=== PATIENT | male | born 2000 | race African-American/Black ===

== ENCOUNTER 2021-10-21 20:44 | Emergency (ER) | payer OTHER ==
[~2021-10-21 20:44] MED LIST: Iopamidol-370 76% 500 ML 1 ML ONE
[2021-10-21 21:28] LABS: #Eosinphils 0.4 thou/uL (0.0-0.7); #Lymphocytes 2.6 thou/uL (1.20-3.40); #Monocytes 0.7 thou/uL (0.11-0.59); #Neutrophils 4.2 thou/uL (1.40-6.50); %Basophils 0.5 % (0.0-1.0); %Eosinophils 5.3 % (0.0-10.0); %Lymphocytes 33.3 % (28.0-48.0); %Monocytes 8.3 % (0.0-4.0); %Neutrophils 52.6 % (31.0-61.0); Hemoglobin 15.2 g/dL (14.0-18.0); Mean Corpuscular Hemoglobin 30.8 pg (25.0-35.0); Mean Corpuscular Volume 93.3 fL (78.0-98.0); Mean Platelet Volume 8.1 fL (7.4-10.4); Platelet Count 218 thou/uL (130-400); Red Blood Cell (RBC) Count 4.92 mill/uL (4.00-5.20); White Blood Cell (WBC) Count 7.9 thou/uL (4.8-10.8)
[2021-10-21] MEDS ORDERED: Morphine 4 MG/ML VIAL ONE (21:53)
[2021-10-21 22:55] LABS: Anion Gap 14 mmol/L (10-20); BUN (Urea Nitrogen) 18 mg/dL (8.9-20.6); Calc. Creatinine Clearance 0 mL/min (70-130); Calcium 9.6 mg/dL (7.8-10.44); Carbon Dioxide 24 mmol/L (22-29); Chloride 102 mmol/L (98-107); Glucose 116 mg/dL (70-105); Potassium 3.8 mmol/L (3.5-5.1); Sodium 136 mmol/L (136-145)
[2021-10-21 22:56] LABS: ALT (SGPT) 25 U/L (8-55); AST (SGOT) 22 U/L (5-34); Albumin 4.6 g/dL (3.5-5.0); Alkaline Phosphatase 89 U/L (50-130); Bilirubin, Direct 0.1 mg/dL (0.1-0.3); Bilirubin, Total 0.2 mg/dL (0.2-1.2); Protein, Total 7.9 g/dL (6.0-8.3)
== END 2021-10-21 23:15 | disposition home or self-care (01) ==
LOC: ERS 20:44
DX: K46.9 Unspecified abdominal hernia without obstruction or gangrene (principal)
CPT/HCPCS: 36415; 74177; 80048; 80076; 83605; 85025; 96374; J2270

== ENCOUNTER 2021-10-25 15:47 | Outpatient (CLI) | payer OTHER ==
[2021-10-25 18:21] LABS: #Basophils 0.1 10x3/uL (0.0-0.2); #Eosinphils 0.4 10x3/uL (0.0-0.5); #Monocytes 0.6 10x3/uL (0.0-1.1); #Neutrophils 3.3 10x3/uL (1.5-8.4); %Eosinophils 6.5 % (0.0-6.0); %Lymphocytes 25.9 % (18.0-47.0); %Monocytes 10.5 % (0.0-10.0); %Neutrophils 55.8 % (40.0-75.0); Hemoglobin 15.4 g/dL (13.5-17.5); Mean Corpuscular Hemoglobin 30.1 pg (27.0-33.0); Mean Corpuscular Volume 88.6 fl (81.2-95.1); Mean Platelet Volume 11.2 fl (7.4-10.4); Platelet Count 253 10x3/uL (150-450); RBC Distribution Width 11.8 % (11.5-14.5); Red Blood Cell (RBC) Count 5.11 10x6/uL (4.32-5.72)
[2021-10-25 18:35] LABS: Anion Gap 14 mmol/L (10-20); BUN (Urea Nitrogen) 16 mg/dL (8.9-20.6); Calc. Creatinine Clearance 0 mL/min (70-130); Calcium 9.8 mg/dL (7.8-10.44); Carbon Dioxide 28 mmol/L (22-29); Chloride 100 mmol/L (98-107); Glucose 80 mg/dL (70-105); Potassium 4.3 mmol/L (3.5-5.1); Sodium 138 mmol/L (136-145)
[2021-10-26 00:50] LABS: SARS-CoV-2 PCR by NAA Not Detected (NotDetected)
== END 2021-10-25 15:48 | disposition home or self-care (01) ==
LOC: LABBT 15:47
PROVIDERS: ATTEND Surgery
DX: Z01.812 Encounter for preprocedural laboratory examination (principal); Z20.822 Contact with and (suspected) exposure to COVID-19
CPT/HCPCS: 80048; 85025; U0003; U0005

== ENCOUNTER 2021-10-28 11:34 | Day surgery (SDC) | payer OTHER ==
[2021-10-25 14:39] VITALS: BMI 27.2
[2021-10-28] MEDS ORDERED: Lidocaine 1% MPF 2 ML VIAL ONE (12:20)
[2021-10-28] MEDS ORDERED: Lidocaine 1% w/Epinephrine 1:100K 20 ML VIAL ONE ×2 (12:59→14:06)
[2021-10-28] MEDS ORDERED: Bupivacaine 0.25% 10 ML VIAL ONE ×2 (12:59→14:06)
[2021-10-28] MEDS ORDERED: Midazolam HCl 2 mg/2 ml Vial ONE (13:20)
[2021-10-28] MEDS ORDERED: Dexmedetomidine 200 MCG/2 ML VIAL ONE (14:03)
[2021-10-28] MEDS ORDERED: fentaNYL Citrate/PF 100 MCG/2 ML SYRINGE ONE (14:03)
[2021-10-28] MEDS ORDERED: Meperidine HCl/PF 25 MG/ML VIAL ONE (14:07)
[2021-10-28] MEDS ORDERED: Famotidine/PF 20 mg/2ml Vial ONE (14:07)
[2021-10-28] MEDS ORDERED: ceFAZolin (BATCH) 2 GM/100 ML BAG ONE (14:15)
[2021-10-28] MEDS ORDERED: Ketorolac Tromethamine 30 MG/ML VIAL ONE (14:22)
[2021-10-28] MEDS ORDERED: Dexamethasone 20 MG/5 ML VIAL ONE (14:22)
[2021-10-28] MEDS ORDERED: Ondansetron PF 4 MG/2 ML Vial ONE (14:22)
[2021-10-28] MEDS ORDERED: PROPOFOL 200 MG/20 ML VIAL ONE (14:22)
[2021-10-28] MEDS ORDERED: Metoclopramide HCl 10 MG/2 ML VIAL ONE (14:22)
[2021-10-28] MEDS ORDERED: Lidocaine 1% PF 5 ML VIAL ONE (14:22)
[2021-10-28] MEDS ORDERED: HYDROcodone/Acetaminophen 5/325 mg Tablet ONE (15:57)
== END 2021-10-28 17:05 | disposition home or self-care (01) ==
LOC: SDC 11:34
PROVIDERS: ATTEND Surgery
PROC: 0WUF0JZ Supplement Abdominal Wall with Synthetic Substitute, Open Approach (ICD-10-PCS; principal; 2021-10-28)
DX: K43.9 Ventral hernia without obstruction or gangrene (principal); J45.20 Mild intermittent asthma, uncomplicated
CPT/HCPCS: C1889; J0690; J1100; J1885; J2175; J2250; J2405; J2704; J2765; S0020; S0028